=== PATIENT | male | born 1995 | race African-American/Black ===

== ENCOUNTER 2020-09-07 19:30 | Emergency (ER) | payer OTHER ==
[2020-09-07 19:35] VITALS: BP 147/78
[2020-09-07] MEDS ORDERED: LIDOCAINE VISCOUS 2% 15 ML UDC MM STA (19:49)
[2020-09-07] MEDS ORDERED: MAG HYDROX/AL HYDROX/SIMETH 30 ML UDC PO STA (19:50)
--- NOTE | 2020-09-07 19:51 | ED Physician Documentation ---
History of Present Illness - Stated complaint Stated Complaint: RT ABD PX - Chief complaint Chief Complaint: Abd Pain - Additonal information Additional information: 25-year-old male presents the emergency department for evaluation of upper a bdominal pain. Has been present for about 2 days. Mostly a dull ache sometimes radiating to the right upper quadrant. Some nausea but no vomiting. No fevers. He often feels full early after eating. He denies dysuria urgency or frequency. No flank pain lower abdominal pain or hematuria. Past surgical history includes repair of an inguinal hernia only. Social: Denies tobacco or alcohol use. Review of Systems Constitutional: denies: Fever, Chills Eyes: reports: Reviewed and negative Ears: reports: Reviewed and negative Nose: reports: Reviewed and negative Throat: reports: Reviewed and negative Cardiac: reports: Reviewed and negative Respiratory: reports: Reviewed and negative GI: reports: Abdominal Pain, Nausea. denies: Vomiting, Constipation, Diarrhea, Hematemesis, Bloody / black stool : denies: Dysuria, Frequency, Hesitancy, Hematuria Skin: reports: Reviewed and negative Musculoskeletal: reports: Reviewed and negative Neurologic: reports: Reviewed and negative PD PAST MEDICAL HISTORY - Present Medications Home Medications: Ambulatory Orders Medication Instructions Recorded Confirmed Pantoprazole Sodium [Protonix] 20 mg PO DAILY #30 09/07/20 - Allergies Allergies/Adverse Reactions: Allergies Allergy/AdvReac Type Severity Reaction Status Date / Time No Known Drug Allergies Allergy Verified 09/07/20 19:33 PD ED PE NORMAL - General General: Alert and oriented X 3, No acute distress, Well developed/nourished - HEENT HEENT: Atraumatic, Moist mucous membranes, Pharynx benign - Neck Neck: Supple, no meningeal sign, No adenopathy - Cardiac Cardiac: RRR, No murmur, No gallop - Respiratory Respiratory: No respiratory distress, Clear bilaterally - Abdomen Abdomen: Normal bowel sounds, Soft. No: Non tender (Mild epigastric tenderness only. No guarding or rebound. No tenderness in the lower abdomen. Negative Vega's and McBurney's. No CVA tenderness elicited or flank pain.) - Back Back: No: No CVA TTP - Derm Derm: Normal color, Warm and dry, No rash - Extremities Extremities: No deformity Results - Vitals Vitals: Vital Signs - 24 hr 09/07/20 09/07/20 19:33 19:35 Temperature 36.8 C 36.8 C Heart Rate 74 74 Respiratory 19 19 Rate Blood Pressure 147/78 H 147/78 H O2 Saturation 100 100 Oxygen O2 Source Room air - Labs Labs: Laboratory Tests 09/07/20 09/07/20 09/07/20 19:41 19:52 19:52 WBC 6.4 RBC 5.54 Hgb 15.6 Hct 45.0 MCV 81.2 MCH 28.2 MCHC 34.7 RDW 12.2 Plt Count 325 MPV 9.3 Neut # (Auto) 3.3 Lymph # (Auto) 2.6 Lewis # (Auto) 0.4 Eos # (Auto) 0.0 Baso # (Auto) 0.0 Absolute Nucleated RBC 0.00 Nucleated RBC % 0.0 Sodium 138 Potassium 3.8 Chloride 102 Carbon Dioxide 26 Anion Gap 10.0 BUN 17 Creatinine 1.3 H Estimated GFR (MDRD) 82 L Glucose 91 Calcium 9.5 Total Bilirubin 1.4 H AST 24 ALT 23 Alkaline Phosphatase 69 Total Protein 8.5 H Albumin 5.1 Globulin 3.4 Albumin/Globulin Ratio 1.5 Lipase 26 Urine Color YELLOW Urine Clarity CLEAR Urine pH 6.0 Ur Specific [place] 1.010 Urine Protein NEGATIVE Urine Glucose (UA) NEGATIVE Urine Ketones NEGATIVE Urine Occult Blood NEGATIVE Urine Nitrite NEGATIVE Urine Bilirubin NEGATIVE Urine Urobilinogen 0.2 (NORMAL) Ur Leukocyte Esterase NEGATIVE Ur Microscopic Review NOT INDICATED Urine Culture Comments NOT INDICATED - Rads (name of study) Abd US Radiology: See rad report, Other (per the agricultural research technologist there is no findings of gallstones pericholecystic fluid or acute cholecystitis.) PD MEDICAL DECISION MAKING - ED course Complexity details: reviewed results, re-evaluated patient, d/w patient ED course: 25-year-old male presents emergency department for evaluation of 2 days of pain with some nausea especially after eating. He has had no vomiting or fevers. He reports that last year he had to stop drinking socially because every time he drank he would get pain in his stomach. This gentleman does not overuse NSAID medication. On exam he was mildly tender in the epigastrium without a Vega's and no lower abdominal tenderness elicited. Screening labs were essentially unremarkable though his T bili was mildly elevated at 1.4. Screening ultrasound revealed no findings consistent with cholecystitis. This gentleman was given Maalox and viscous lidocaine with marked improvement in his symptoms here in the emergency department. Thus I suspect that he has a gastritis. I will start him on a prescription of Protonix. He has follow-up scheduled with [facility] and this week. I have advised him to discuss this ED visit with his provider. He may benefit from H. pylori testing and/or further evaluation with a table inspector that may include an EGD. Departure - Departure Disposition: Home, Self Care Clinical Impression: Epigastric pain Condition: Stable Record reviewed to determine appropriate education?: Yes Instructions: ED PUD Vs Gastritis Prescriptions: Pantoprazole Sodium [Protonix] 20 mg PO DAILY #30 Comments: Sandoval you are seen in the emergency department for upper abdominal pain and nausea that is gotten worse over the last few days. However as we discussed in your history it sounds like in the past you have had stomach upset with things like drinking alcohol or eating spicy foods. I suspect that you may have gastritis which is an inflammation of the lining of your stomach. It can lead to ulcers. I would like you to fill the prescription for the Protonix and begin taking daily as prescribed. Please avoid overly spicy foods or excessive amounts of caffeine, any tobacco products. Discussed this ED visit with your primary care provider on 30 stay as already scheduled. You may benefit from he will bacteria pylori testing which is the bacteria that we discussed. If your symptoms are not improving may also benefit from referral to a table inspector for an endoscopy where they would place a camera into your stomach to look at the lining. Return to the emergency department for fevers, suddenly severe or different abdominal pain, uncontrolled vomiting or black/bloody stools.
[2020-09-07 19:59] LABS: BILIRUBIN,URINE NEGATIVE (NEGATIVE); GLUCOSE, URINE (UA) NEGATIVE (NEGATIVE); KETONES,URINE (UA) NEGATIVE (NEGATIVE); LEUKOCYTE ESTERASE, URINE NEGATIVE (NEGATIVE); NITRITE,URINE NEGATIVE (NEGATIVE); OCCULT BLOOD,URINE NEGATIVE (NEGATIVE); PROTEIN,URINE NEGATIVE (NEGATIVE); UROBILINOGEN,URINE 0.2 (NORMAL) E.U./dL (NORMAL)
[2020-09-07 19:59] LABS: BASOPHILS % (AUTO) 0.2 %; EOSINOPHILS % (AUTO) 0.3 %; HGB - HEMOGLOBIN 15.6 g/dL (14.0-18.0); LYMPHOCYTES # (AUTO) 2.6 10^3/uL (1.5-3.5); LYMPHOCYTES % (AUTO) 40.9 %; MEAN CORPUSCULAR HEMOGLOBIN 28.2 pg (27.0-31.0); MEAN CORPUSCULAR HGB CONC 34.7 g/dL (32.0-36.0); MEAN CORPUSCULAR VOLUME 81.2 fL (80.0-94.0); MEAN PLATELET VOLUME 9.3 fL (7.4-11.4); MONOCYTES # (AUTO) 0.4 10^3/uL (0.0-1.0); MONOCYTES % (AUTO) 6.3 %; NEUTROPHILS # (AUTO) 3.3 10^3/uL (1.5-6.6); NEUTROPHILS % (AUTO) 52.1 %; PLT - PLATELET COUNT 325 10^3/uL (130-450); RED BLOOD COUNT 5.54 10^6/uL (4.70-6.10); RED CELL DISTRIBUTION WIDTH 12.2 % (12.0-15.0); WHITE BLOOD COUNT 6.4 x10^3/uL (4.8-10.8)
[2020-09-07 20:00] LABS: CLARITY,URINE CLEAR (CLEAR)
[2020-09-07 20:13] LABS: ALBUMIN 5.1 g/dL (3.2-5.5); ALBUMIN/GLOBULIN RATIO 1.5 (1.0-2.2); BILIRUBIN,TOTAL 1.4 mg/dL (0.2-1.0); CALCIUM 9.5 mg/dL (8.5-10.3); CREATININE 1.3 mg/dL (0.6-1.2); POTASSIUM 3.8 mmol/L (3.5-5.0); TOTAL PROTEIN 8.5 g/dL (6.7-8.2)
--- NOTE | 2020-09-07 21:08 | Ultrasound Report ---
PROCEDURE: Abdomen Limited INDICATIONS: epigastric, ruq pain; eval for guero TECHNIQUE: Real-time focused scanning was performed of the abdomen, with image documentation. COMPARISON: None FINDINGS: There is normal in size. Echotexture of the liver is within normal limits. Portions of the left lower liver are obscured by bowel gas and cannot be evaluated. Gallbladder sonographically normal. No gallstones. No gallbladder wall thickening with gallbladder wa ll measuring 1.6 mm. No pericholecystic fluid. No sonographic Vega sign. Biliary tree is nondilated. Common bile duct measures 3.7 mm. Pancreas obscured by bowel gas and cannot be evaluated. Right kidney sonographically normal. IMPRESSION: No sonographic evidence of cholelithiasis or cholecystitis. There is continued clinical concern for c holecystitis, a nuclear medicine HIDA scan should be considered for further evaluation. Reviewed by: Kathryn Jane MD, PhD on 09/07/2020 9:07 PM PDT Approved by: Kathryn Jane MD, PhD on 09/07/2020 9:07 PM PDT Station ID: [id number]
== END 2020-09-07 20:46 | disposition home or self-care (01) ==
LOC: ED 19:30
DX: R10.13 Epigastric pain (principal)
CPT/HCPCS: 36415; 76705; 80053; 81003; 83690; 85025; 99284; A9270; 81001; 87086

== ENCOUNTER 2021-10-17 20:51 | Emergency (ER) | payer OTHER ==
[2021-10-17 21:14] VITALS: BP 133/114
[2021-10-17] MEDS ORDERED: KETOROLAC 60 MG/2 ML VIAL IM STA (21:50)
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
== END 2021-10-17 22:58 | disposition home or self-care (01) ==
LOC: ED 20:51
DX: S39.012A Strain of muscle, fascia and tendon of lower back, initial encounter (principal); V43.52XA Car driver injured in collision with other type car in traffic accident, initial encounter
CPT/HCPCS: 96372; 99282; 99283

== ENCOUNTER 2021-11-03 16:11 | Outpatient (CLI) | payer OTHER ==
--- NOTE | 2021-11-04 11:18 | XRAY Report ---
PROCEDURE: Thoracic Spine 2 View INDICATIONS: Upper back pain TECHNIQUE: 2 views of the thoracic spine were acquired. COMPARISON: None. FINDINGS: Normal thoracic spine vertebral body height and alignment. No fracture, subluxation, or dislocation. No suspicious lytic or blastic osseous lesion. No degenerative changes. IMPRESSION: Normal thoracic spine radiographs. Reviewed by: Sandoval Mejia MD on 11/04/2021 11:17 AM PDT Approved by: Sandoval Mejia MD on 11/04/2021 11:17 AM PDT Station ID: [id number]
== END 2021-11-03 16:12 | disposition home or self-care (01) ==
LOC: DI.N 16:11
DX: S13.4XXA Sprain of ligaments of cervical spine, initial encounter (principal); S23.3XXA Sprain of ligaments of thoracic spine, initial encounter; S33.5XXA Sprain of ligaments of lumbar spine, initial encounter

== ENCOUNTER 2022-03-29 13:33 | Emergency (ER) | payer OTHER ==
[2022-03-29 14:20] VITALS: BP 125/84
--- NOTE | 2022-03-29 15:40 | ED Physician Documentation ---
PD HPI HEENT - Stated complaint Stated Complaint: COUGH/SNEEZING - Chief complaint Chief Complaint: Heent - History obtained from History obtained from: Patient - Additional information Additional information: 27-year-old gentleman with history of mild asthma has been sick for about a week with cough cold and runny nose. Had chills at the outset. He is generally improving but checks in with his 3 other family members who are more acutely ill. Review of Systems Constitutional: reports: Chills Nose: reports: Rhinorrhea / runny nose Throat: denies: Sore throat Respiratory: reports: Cough PD PAST MEDICAL HISTORY - Past Medical History GI: Hiatal hernia, Colon polyps - Past Surgical History Past Surgical History: No General: Hiatal hernia repair, Colonoscopy Ortho: Other - Present Medications Home Medications: Ambulatory Orders Medication Instructions Recorded Confirmed Pantoprazole Sodium [Protonix] 20 mg PO DAILY #30 09/07/20 - Allergies Allergies/Adverse Reactions: Allergies Allergy/AdvReac Type Severity Reaction Status Date / Time No Known Drug Allergies Allergy Verified 03/29/22 14:20 - Social History Does the pt smoke?: No Smoking Status: Never smoker Does the pt drink ETOH?: No Does the pt have substance abuse?: No - Immunizations Immunizations are current?: Yes - POLST Patient has POLST: No PD ED PE NORMAL - Vitals Vital signs reviewed: Yes - General General: Alert and oriented X 3, No acute distress - HEENT HEENT: PERRL, EOMI, Pharynx benign - Neck Neck: Supple, no meningeal sign, No bony TTP - Cardiac Cardiac: RRR, No murmur - Respiratory Respiratory: No respiratory distress, Clear bilaterally - Abdomen Abdomen: Normal bowel sounds, Soft, Non tender - Back Back: No CVA TTP, No spinal TTP - Derm Derm: Normal color, Warm and dry - Extremities Extremities: No edema, No calf tenderness / cord - Neuro Neuro: Alert and oriented X 3, Normal speech Results - Vitals Vitals: Vital Signs - 24 hr 03/29/22 14:18 Temperature 36.2 C L Heart Rate 76 Respiratory 20 Rate Blood Pressure 125/84 H O2 Saturation 99 Oxygen O2 Source Room air PD MEDICAL DECISION MAKING - ED course ED course: 27-year-old gentleman with viral syndrome who is improving after 6 days of symptomatology. He is here with his family with similar symptoms. There is no evidence of bacterial infection. Conservative care was advised. Departure - Departure Disposition: 01 Home, Self Care Clinical Impression: Viral URI Condition: Good Record reviewed to determine appropriate education?: Yes Instructions: ED Viral Syndrome Comments: You are seen today for a viral upper respiratory infection. No evidence of bacterial infection. It sounds like you are already improving. Return if worse.
== END 2022-03-29 15:51 | disposition home or self-care (01) ==
LOC: ED 13:33
DX: J06.9 Acute upper respiratory infection, unspecified (principal)
CPT/HCPCS: 99281; 99282